=== PATIENT | female | born 1930 | race Caucasian/White ===

== ENCOUNTER → 2016-08-02 | Outpatient (CLI) | payer MEDICARE, OTHER | LOC: GMAB 12:58 | PROVIDERS: ATTEND Family Medicine | DX: L03.115 Cellulitis of right lower limb (principal) ==

== ENCOUNTER → 2016-10-11 | Outpatient (CLI) | payer OTHER | END | disposition home or self-care (01) | LOC: GMAB 10:43 | PROVIDERS: ATTEND Family Medicine | DX: I48.91 Unspecified atrial fibrillation (principal); I10 Essential (primary) hypertension ==

== ENCOUNTER → 2017-01-30 | Outpatient (CLI) | payer OTHER | END | disposition home or self-care (01) | LOC: GMA 20:10 | PROVIDERS: ATTEND Nurse Practitioner Family | DX: R50.9 Fever, unspecified (principal) ==

== ENCOUNTER → 2017-05-01 | Outpatient (CLI) | payer OTHER | LOC: GMAB 12:28 | PROVIDERS: ATTEND Family Medicine | DX: M79.641 Pain in right hand (principal) ==

== ENCOUNTER → 2017-06-11 | Outpatient (CLI) | payer OTHER | LOC: GMAB 13:10 | PROVIDERS: ATTEND Family Medicine | DX: R30.0 Dysuria (principal); J06.9 Acute upper respiratory infection, unspecified ==

== ENCOUNTER 2017-09-08 15:37 | Emergency (ER) | payer OTHER ==
[2017-09-08 16:30] VITALS: TEMP 97.9; O2SAT 97
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
[2017-09-08 17:31] VITALS: BP 161/71
== END 2017-09-08 17:34 | disposition home or self-care (01) ==
LOC: ER 15:37
DX: Z04.1 Encounter for examination and observation following transport accident (principal)

== ENCOUNTER → 2017-11-07 | Outpatient (CLI) | payer OTHER | LOC: GMAE 10:45 | PROVIDERS: ATTEND Family Medicine | DX: I10 Essential (primary) hypertension (principal) ==

== ENCOUNTER → 2017-11-11 | Outpatient (CLI) | payer OTHER | LOC: GMAE 16:50 | PROVIDERS: ATTEND Family Medicine | DX: R94.5 Abnormal results of liver function studies (principal) ==

== ENCOUNTER → 2017-11-13 | Outpatient (CLI) | payer OTHER ==
--- NOTE | 2017-11-13 17:59 | US ---
EXAM DESCRIPTION: Liver: ULTRASOUND. CLINICAL HISTORY: ABNORMAL RESULTS OF LIVER FUNCTION STUDIES COMPARISON: None. TECHNIQUE: Transabdominal scannin-dimensional and Doppler modes. FINDINGS: Gallbladder: Has been surgically removed. No fluid in the gallbladder fossa. Common bile duct: caliber 10.9 mm is dilated. Liver: Increased echogenicity; contour liver capsule smooth where seen. No fluid around the liver. Intrahepatic biliary ducts normal caliber. Doppler hepatopedal flow portal vein. 9.4 mm caliber Long axis right lobe 13.2 cm. 10 x 9 mm cyst in the right lobe. Pancreas: normal size and echogenicity. Duct not seen. Right kidney: long axis measures 9.1 cm. Normal Echogenicity. Cortical thickness approximately 12 mm. No hydronephrosis. Multiple cysts, largest measuring 10 mm. IMPRESSION: Fatty liver but not enlarged. No intrahepatic biliary dilatation. Normal vascularity. 10 mm cyst. No ascites. Normal ultrasound of the pancreas. Gallbladder surgically removed with no fluid in the gallbladder fossa. Common bile duct with minimally dilation, even with cholecystectomy, but this could be age-related. Normal echogenicity of the right kidney except for cysts. Minimal cortical thinning may be age-related. Electronically signed by: Chace Perez MD 11/13/2017 5:57 PM CDT
== END ==
LOC: US 08:25
PROVIDERS: ATTEND Family Medicine
DX: R94.5 Abnormal results of liver function studies (principal); K76.0 Fatty (change of) liver, not elsewhere classified; Z90.49 Acquired absence of other specified parts of digestive tract

== ENCOUNTER → 2018-11-20 | Outpatient (CLI) | payer OTHER ==
--- NOTE | 2018-11-23 12:04 | CT ---
CT LOWER EXTREMITY ANGIOGRAPHY WITH IV CONTRAST HISTORY: 88 years Female PVD COMPARISON: None. TECHNIQUE: Helical tomographic images of the pelvis and lower extremities were obtained after the intravenous administration of 100 cc of Isovue-370 utilizing an angiogram protocol. 3-D reconstructions of the arterial vasculature were provided. Coronal and sagittal reformatted images were also provided. This exam was performed according to our departmental dose-optimization program, which includes automated exposure control, adjustment of the mA and/or kV according to patient size and/or use of iterative reconstruction technique. FINDINGS: Right lower extremity: Mild to moderate atherosclerotic disease demonstrated throughout the right lower extremity. Multifocal short segment mild to moderate stenoses within the superficial femoral artery. Deep femoral artery appears patent. Moderate short segment stenosis within the supragenicular popliteal artery. Diminished flow in the proximal posterior tibial artery, without evidence of flow related enhancement throughout the distal right lower leg and right foot. Collateral circulation is demonstrated in the right foot via the peroneal artery. Anterior tibial artery demonstrates a few foci of short segment stenosis but appears patent throughout, contiguous with the dorsalis pedis. Left lower extremity: [id number] atherosclerotic disease throughout. Multifocal short segment [id number] stenosis within the superficial femoral artery. Deep femoral artery appears patent. Mild narrowing of the popliteal artery. Posterior tibial artery not visualized and may be occluded. Peroneal artery enhancement is markedly diminished. A few short segment stenoses are present in the anterior tibial artery which appears patent and contiguous with the dorsalis pedis. Bilateral inguinal lymph nodes appear mildly enlarged, nonspecific. Remainder of the included surrounding soft tissues demonstrate no definite acute process. Degenerative changes are present in the included osseous structures. No acute osseous abnormality identified. IMPRESSION: [id number] atherosclerotic disease in bilateral lower extremities. Mild to moderate short segment stenoses within bilateral superficial femoral and popliteal arteries. Two-vessel runoff in the right lower extremity with lack of enhancement within the distal posterior tibial artery. One-vessel runoff in the left lower extremity with lack of enhancement throughout the posterior tibial artery and distal peroneal artery. Electronically signed by: Jono Evangelista MD 11/23/2018 12:02 PM CDT
== END ==
LOC: LAB.O 09:50
PROVIDERS: ATTEND Family Medicine
DX: I70.293 Other atherosclerosis of native arteries of extremities, bilateral legs (principal)

== ENCOUNTER → 2018-11-25 | Outpatient (CLI) | payer OTHER | LOC: GMAE 10:51 | PROVIDERS: ATTEND Family Medicine | DX: I10 Essential (primary) hypertension (principal); E78.2 Mixed hyperlipidemia ==

== ENCOUNTER → 2019-04-22 | Outpatient (CLI) | payer OTHER | LOC: GMAJS 14:22 | PROVIDERS: ATTEND Physician Assistant | DX: E87.6 Hypokalemia (principal); R10.84 Generalized abdominal pain ==

== ENCOUNTER → 2019-05-17 | Outpatient (CLI) | payer OTHER | DX: R30.0 Dysuria (principal) ==

== ENCOUNTER → 2019-05-25 | Outpatient (CLI) | payer OTHER | LOC: BFHH 17:02 | PROVIDERS: ATTEND Family Medicine | DX: M54.16 Radiculopathy, lumbar region (principal); M25.552 Pain in left hip; I11.0 Hypertensive heart disease with heart failure; R94.5 Abnormal results of liver function studies ==

== ENCOUNTER → 2019-12-15 | Outpatient (CLI) | payer OTHER | LOC: GMAE 14:21 | PROVIDERS: ATTEND Family Medicine | DX: N39.0 Urinary tract infection, site not specified (principal); I10 Essential (primary) hypertension; E78.2 Mixed hyperlipidemia; D72.829 Elevated white blood cell count, unspecified ==

== ENCOUNTER → 2019-12-22 | Outpatient (CLI) | payer OTHER | LOC: GMAE 14:29 | PROVIDERS: ATTEND Family Medicine | DX: I48.0 Paroxysmal atrial fibrillation (principal); R73.09 Other abnormal glucose; D72.829 Elevated white blood cell count, unspecified ==